=== PATIENT | female | born 1940 | race Caucasian/White ===

== ENCOUNTER 2017-09-22 11:19 | Outpatient (CLI) | payer MEDICARE ==
[2017-09-22 13:30] LABS: Mean Corpuscular HGB CONC 32.5 g/dL (32.0-36.0); Mean Corpuscular Hemoglobin 31.2 pg (27.0-31.0); Mean Platelet Volume 10.1 fL (7.4-10.4); Platelet Count 139 thou/uL (130-400); RBC Distribution Width 12.1 % (11.5-14.5); Red Blood Cell (RBC) Count 3.51 mill/uL (4.20-5.40)
[2017-09-22 13:49] LABS: Anion Gap 10 mmol/L (10-20); BUN (Urea Nitrogen) 17 mg/dL (9.8-20.1); Calc. Creatinine Clearance 0 mL/min (70-130); Calcium 9.3 mg/dL (7.8-10.44); Carbon Dioxide 28 mmol/L (23-31); Chloride 105 mmol/L (98-107); Estimated GFR-MDRD 62; Glucose 110 mg/dL (83-110); Potassium 4.6 mmol/L (3.5-5.1); Sodium 138 mmol/L (136-145)
== END 2017-09-22 11:20 | disposition home or self-care (01) ==
LOC: LABBT 11:19
PROVIDERS: ATTEND Neurological Surgery
DX: Z01.818 Encounter for other preprocedural examination (principal); M48.061 Spinal stenosis, lumbar region without neurogenic claudication
CPT/HCPCS: 80048; 85027

== ENCOUNTER 2017-09-29 06:55 | Day surgery (SDC) | payer MEDICARE ==
[2017-09-22 12:17] VITALS: BMI 23.0
--- NOTE | 2017-09-29 00:21 | HP ---
HISTORY OF PRESENT ILLNESS: Ms. Lees is a pleasant 77-year-old woman referred to us by Dr. Varinder cobb for neurogenic claudication as well as left lower extremity L5 pain. She has had several epidural steroid injections with good results, but for short duration. 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 She is interested in pursuing surgery if possible. PAST MEDICAL HISTORY: Significant for chronic pain syndrome, congestive heart failure, diabetes, dys lipidemia, hypertension, and COPD. PAST SURGICAL HISTORY: Mastectomy of left breast, tonsillectomy, and adenoidectomy. ALLERGIES: PENICILLIN. CURRENT MEDICATIONS: Entresto, Ventolin, vitamin D, spironolactone, ipratropium, albuterol, Lyrica, Tudorza, pravastatin, alprazolam, trazodone, Tylenol No. 3, carvedilol, Symbicort, metformin, montelu kast, Celexa, Singulair. PHYSICAL EXAMINATION: The patient is alert and oriented x3. Gait is severely antalgic as well and s lowed and stooped. Lower extremity motor exam is normal. ASSESSMENT: Lumbar radiculopathy and neurogenic claudication. PLAN: Dr. Crawford met with the patient, reviewed her imaging and then ultimately advocated for an L4-L 5 decompression. He explained to the patient the risks, benefits, and alternatives to the procedure. The patient expressed understanding and would like to move forward with surgery as discussed. I do believe the patient is mentally competent and capable of making medical decisions for herself and we will move forward with surgery as planned. Timoteo Holloway PA-C, dictating for Dr. Crawford.
[2017-09-29] MEDS ORDERED: Clindamycin/D5W 900 mg/50 ml Premix Bag ONE (07:45)
[2017-09-29] MEDS ORDERED: Levofloxacin 500 mg/D5W 100 ml Premix Bag ONE (07:45)
[2017-09-29] MEDS ORDERED: Thrombin 5000 UNITS/5 ML VIAL ONE (09:02)
[2017-09-29] MEDS ORDERED: Bupivacaine HCl 0.5%/Epinephrine 1:200,000/PF 30 ml Vial ONE (09:02)
[2017-09-29] MEDS ORDERED: Phenylephrine HCL 10 MG/ML VIAL ONE (09:09)
[2017-09-29] MEDS ORDERED: Fentanyl 100 MCG/2 ML VIAL ONE ×2 (09:21→11:09)
[2017-09-29] MEDS ORDERED: SUGAMMADEX SODIUM 200 MG/2 ML VIAL ONE (10:36)
--- NOTE | 2017-09-29 11:14 | OP ---
DATE OF PROCEDURE: 09/29/2017 SURGEON: Yaron Crawford M.D. PEDIATRIC PSYCHOLOGIST: Timoteo Holloway PA-C INDICATION: Pain. DIAGNOSIS: Lumbar stenosis. PROCEDURE: L4-5 lumbar decompression. ANESTHESIA: General. TECHNIQUE: The patient was brought into the operating room and placed under general anesthesia. She was flipped from a supine to a prone position on the operating room table. A linear incision was pl anned over the L4-L5 segment. After prepping and draping and after an appropriate operative pause, t he incision was created. Soft tissues were swept away from midline. Self-retaining retractors were placed in the wound for optimal exposure. After confirming the appropriate level, an Adson rongeur w as used to remove the spinous process at the L4-5 segment. A high-speed cutting drill bit as well as 2, 3 and 4 mm Kerrisons used to perform a laminectomy. Laminectomy was extended to the medial aspec t of the facet joints until the lateral recesses of the L4-5 decompression were well decompressed. T he wound was irrigated. Hemostasis was maintained throughout. The wound was then closed in anatomic layers and a pressure dressing was applied. There were no known procedural complications.
[2017-09-29] MEDS ORDERED: Ondansetron HCl/PF 4 MG/2 ML Vial ONE (12:57)
[2017-09-29] MEDS ORDERED: Glycopyrrolate 0.2 MG/ML 5 ML SYRINGE ONE (12:57)
[2017-09-29] MEDS ORDERED: PROPOFOL 200 MG/20 ML VIAL ONE (12:57)
[2017-09-29] MEDS ORDERED: Lidocaine 1% PF 5 ML VIAL ONE ×2 (12:57)
== END 2017-09-29 14:00 | disposition home or self-care (01) ==
LOC: SDC 06:55
PROVIDERS: ATTEND Neurological Surgery
PROC: 0ST20ZZ Resection of Lumbar Vertebral Disc, Open Approach (ICD-10-PCS; principal; 2017-09-29)
PROC: 01NB0ZZ Release Lumbar Nerve, Open Approach (ICD-10-PCS; 2017-09-29)
DX: M48.062 Spinal stenosis, lumbar region with neurogenic claudication (principal); G89.4 Chronic pain syndrome; I11.0 Hypertensive heart disease with heart failure; I50.9 Heart failure, unspecified; E78.5 Hyperlipidemia, unspecified; J44.9 Chronic obstructive pulmonary disease, unspecified; I25.10 Atherosclerotic heart disease of native coronary artery without angina pectoris; I42.0 Dilated cardiomyopathy; I44.7 Left bundle-branch block, unspecified; E11.42 Type 2 diabetes mellitus with diabetic polyneuropathy; F41.9 Anxiety disorder, unspecified; Z79.84 Long term (current) use of oral hypoglycemic drugs; Z79.52 Long term (current) use of systemic steroids; Z79.82 Long term (current) use of aspirin; Z79.899 Other long term (current) drug therapy; Z88.0 Allergy status to penicillin; Z95.810 Presence of automatic (implantable) cardiac defibrillator; Z87.891 Personal history of nicotine dependence
CPT/HCPCS: 76001; 96374; J0670; J1956; J2001; J2370; J2405; J2704; J3010; J3490

== ENCOUNTER 2020-11-26 11:15 | Outpatient (CLI) | payer MEDICARE | END 2020-11-26 11:16 | disposition home or self-care (01) | LOC: BICRAD 11:15 | PROVIDERS: ATTEND Internal Medicine Critical Care Medicine | DX: R06.09 Other forms of dyspnea (principal) | CPT/HCPCS: 71046 ==

== ENCOUNTER 2022-05-28 13:08 | Outpatient (CLI) | payer MEDICARE | END 2022-05-28 13:09 | disposition home or self-care (01) | LOC: RAD 13:08 | PROVIDERS: ATTEND Internal Medicine Critical Care Medicine | DX: R06.00 Dyspnea, unspecified (principal) | CPT/HCPCS: 71046 ==

== ENCOUNTER 2023-05-26 13:02 | Outpatient (CLI) | payer MEDICARE | END 2023-05-26 13:03 | disposition home or self-care (01) | LOC: RAD 13:02 | PROVIDERS: ATTEND Internal Medicine Critical Care Medicine | DX: R06.00 Dyspnea, unspecified (principal); R91.1 Solitary pulmonary nodule | CPT/HCPCS: 71046 ==

== ENCOUNTER 2023-08-03 13:08 | Outpatient (CLI) | payer MEDICARE | END 2023-08-03 13:09 | disposition home or self-care (01) | LOC: RAD 13:08 | PROVIDERS: ATTEND Internal Medicine Critical Care Medicine | DX: R06.00 Dyspnea, unspecified (principal); J98.4 Other disorders of lung | CPT/HCPCS: 71046 ==

== ENCOUNTER 2024-08-08 10:48 | Outpatient (CLI) | payer MEDICARE | END 2024-08-08 10:49 | disposition home or self-care (01) | LOC: RAD 10:48 | PROVIDERS: ATTEND Internal Medicine Critical Care Medicine | DX: R06.00 Dyspnea, unspecified (principal) | CPT/HCPCS: 71046 ==